=== PATIENT | female | born 1945 | race Two or more races ===

== ENCOUNTER → 2024-11-05 | Outpatient (CLI) | payer MEDICARE, OTHER, SELFPAY ==
--- NOTE | 2024-11-05 09:30 | XR_ITS ---
Examination: Screening digital mammography, bilateral Computer aided detection 3-D breast Tomosynthesis, bilateral Date and time of exam: November 05, 2024 2126 hrs. Compared to mammograms dating to March 17, 2019 Indication: Screening Technique: Nonmagnified MLO, CC views of the breasts to been obtained, reconstructed from 3-D Tomosynthesis images. R2 computer aided detection program utilized for evaluation of suspicious masses and/or abnormal calcifications. 3-D Tomosynthesis images obtained. Findings: The breasts are heterogeneously dense, which may obscure small masses 10 mm nodule right breast partially indistinct margins, inner upper right breast 5 mm nodule upper outer left breast Impression: BI-RADS Category 0: Incomplete: Need additional imaging evaluation. Recommend spot tomographic views 10 mm nodule inner upper right breast, follow-up spot tomographic views 5 mm nodule upper outer left breast Recommend bilateral breast sonography follow-up to complete workup
== END | disposition home or self-care (01) ==
LOC: CDIM 09:11
PROVIDERS: Referring Provider Internal Medicine; Visit Provider Internal Medicine
DX: Z12.31 Encounter for screening mammogram for malignant neoplasm of breast (principal); R92.8 Other abnormal and inconclusive findings on diagnostic imaging of breast; N63.12 Unspecified lump in the right breast, upper inner quadrant; N63.11 Unspecified lump in the right breast, upper outer quadrant
CPT/HCPCS: 77063; 77067